=== PATIENT | male | born 1985 ===

== ENCOUNTER 2018-01-28 22:20 | Emergency (ER) | payer SELFPAY ==
--- NOTE | 2018-01-29 01:10 | C.PDOC ---
History Of Present Illness 32 year old male presents to the ED c/o left big toe pain. Patient reports that while at work a table fell on his left big toe which occurred today 2 hours ago. Patient is able to ambulate with some pain. Patient denies weakness, numbness, other injuries. Time Seen by Provider: 01/28/18 22:55 Chief Complaint (Nursing): Lower Extremity Problem/Injury History Per: Patient History/Exam Limitations: no limitations Onset/Duration Of Symptoms: Hrs (2) Current Symptoms Are (Timing): Still Present Recent travel outside of the [place]: No Additional History Per: Patient - Ankle/Foot Description Of Injury: Struck With Object Past Medical History Reviewed: Historical Data, Nursing Documentation, Vital Signs Vital Signs: Last Vital Signs Temp 98.2 F 01/28/18 22:46 Pulse 68 01/28/18 22:46 Resp 20 01/28/18 22:46 BP 152/97 H 01/28/18 22:46 Pulse Ox 98 01/28/18 22:46 - Medical History PMH: No Chronic Diseases Surgical History: No Surg Hx Family History: States: Unknown Family Hx - Social History Hx Alcohol Use: Yes Hx Substance Use: No Review Of Systems Constitutional: Negative for: Fever, Chills Musculoskeletal: Positive for: Foot Pain Skin: Negative for: Rash, Bruising Neurological: Negative for: Weakness, Numbness Physical Exam - Physical Exam Appears: Non-toxic, No Acute Distress Skin: Normal Color, Warm, Dry Head: Atraumatic, Normacephalic Eye(s): bilateral: Normal Inspection Extremity: Normal ROM, Tenderness (left big toe), Capillary Refill (< 2 seconds), Swelling (moderate left big toe), Other (Minimal ecchymosis left big toe, nail normal ) Pulses: Left Dorsalis Pedis: Normal, Right Dorsalis Pedis: Normal Neurological/Psych: Oriented x3, Normal Speech, Normal Motor, Normal Sensation Gait: Steady (with pain) ED Course And Treatment O2 Sat by Pulse Oximetry: 98 (ON RA) Pulse Ox Interpretation: Normal - Other Rad Left foot X-Ray X-Ray: Interpreted by Me, Viewed By Me Interpretation: Distal left great toe tuft fracture Medical Decision Making Medical Decision Making: Plan: * Left foot X-Ray * Tylenol 650 mg PO Patient placed in Ortho shoe by opthalmic tech. Disposition - Disposition Referrals: [facility] [Outside] [facility] [Outside] Disposition: HOME/ ROUTINE Disposition Time: 01:10 Condition: STABLE Additional Instructions: Follow up with the [facility] within 1-2 days without fail. return if worsened. Prescriptions: Acetaminophen [Tylenol] 325 mg PO Q6 PRN #30 tab PRN Reason: Pain, Mild (1-3) Instructions: Toe Fracture (DC) Forms: [employer] ([place]an), Work Excuse Print Language: GREENLANDIC - Clinical Impression Clinical Impression: Toe fracture - PA / MANAGER WILLOW / Resident Statement MD/DO has reviewed & agrees with the documentation as recorded. - Scribe Statement The provider has reviewed the documentation as recorded by the Scribe Christopher Faye All medical record entries made by the Dimitriibnelson were at my direction and personally dictated by me. I have reviewed the chart and agree that the record accurately reflects my personal performance of the history, physical exam, medical decision making, and the department course for this patient. I have also personally directed, reviewed, and agree with the discharge instructions and disposition.
[2018-01-29 01:18] VITALS: BP 144/90; PULSE 69; RESP 16; TEMP 98.8
[2018-01-29 01:55] VITALS: O2SAT 98
--- NOTE | 2018-01-29 08:22 | RAD ---
PROCEDURE: Radiographs of the left great toe. TECHNIQUE:: AP radiograph of the left foot, with oblique and lateral view of the left great toe. COMPARISON: None. FINDINGS: BONES: First distal phalangeal nondisplaced markedly comminuted fracture present. Probable trace 1st inter phalangeal joint extension. JOINTS: Normal. SOFT TISSUES: Normal. OTHER FINDINGS: None. IMPRESSION: First distal phalangeal comminuted fracture-nondisplaced with probable intra articular extension.
== END 2018-01-29 01:19 | disposition home or self-care (01) ==
LOC: C.ER 22:20
DX: S92.422A Displaced fracture of distal phalanx of left great toe, initial encounter for closed fracture (principal); W22.8XXA Striking against or struck by other objects, initial encounter; Y92.89 Other specified places as the place of occurrence of the external cause; Y99.0 Civilian activity done for income or pay